=== PATIENT | male | born 1995 | race African-American/Black ===

== ENCOUNTER 2016-12-05 00:30 | Emergency (ER) | payer SELFPAY ==
[~2016-12-05] VITALS: Ht 182.9 cm; Wt 61.4 kg
[2016-12-05 00:37] VITALS: TEMP 97.4
[2016-12-05] MEDS ORDERED: NORCO 325 MG-51 TAB PO (02:29)
[2016-12-05 03:20] VITALS: BP 112/65; PULSE 71
== END 2016-12-05 03:20 | disposition home or self-care (01) ==
LOC: COL.ER 00:30
DX: M25.551 Pain in right hip (principal); X50.1XXA Overexertion from prolonged static or awkward postures, initial encounter; Y93.67 Activity, basketball; Y92.310 Basketball court as the place of occurrence of the external cause

== ENCOUNTER 2019-04-24 05:42 | Emergency (ER) | payer SELFPAY ==
[~2019-04-24] VITALS: Ht 182.9 cm; Wt 68.2 kg
[~2019-04-24 05:42] MED LIST: NORCO 325 MG-51 TAB PO
[2019-04-24 05:49] VITALS: BP 115/76; PULSE 73; TEMP 97.1
[2019-04-24 06:26] LABS: BASO % 0.7 % (0.0-2.0); EOS # 0.1 (0.0-0.7); EOS % 2.7 % (0-4.0); GRAN # 2.2 (1.4-6.5); GRAN % 48.5 % (42.2-75.2); HEMATOCRIT 39.9 % (42.0-52.0); LYMPH # 1.7 (1.2-3.4); LYMPH % 39.3 % (20.0-51.0); MEAN CELL VOLUME 86 fl (80.0-100.0); MEAN CORPUSCULAR HEMOGLOBIN 28 pg (27.0-31.0); MEAN CORPUSCULAR HGB CONC 33 g/dl (33.0-37.0); MEAN PLATELET VOLUME 10.6 fl (7.4-10.4); MONO # 0.4 (0.1-0.6); MONO % 8.8 % (1.7-9.3); PLATELET COUNT 190 K/mm3 (130-400); RED BLOOD COUNT 4.65 M/mm3 (4.20-5.60); REDCELL DISTRIBUTION WIDTH-CV 12.9 % (11.5-14.5)
[2019-04-24 06:36] LABS: ALBUMIN 4.1 gm/dL (3.5-5.0); BILIRUBIN,TOTAL 0.6 mg/dL (0.0-1.0); CALCIUM 8.6 mg/dL (8.4-10.2); CREATININE, serum 0.97 (0.66-1.25); POTASSIUM 4.1 mmol/L (3.4-5.0); TOTAL PROTEIN 7.5 gm/dL (6.4-8.2)
[2019-04-24 07:05] LABS: HIV 1/2 Antibodies Non-Reactive; HIV-1p24 Antigen Non-Reactive
== END 2019-04-24 07:34 | disposition home or self-care (01) ==
LOC: COL.ER 05:42
PROVIDERS: Emergency Medicine
DX: R20.2 Paresthesia of skin (principal); L29.9 Pruritus, unspecified

== ENCOUNTER 2020-07-26 18:36 | Emergency (ER) | payer SELFPAY ==
[~2020-07-26] VITALS: Ht 185.4 cm; Wt 68.2 kg
[2020-07-26 18:46] VITALS: BP 129/66; TEMP 98
[2020-07-26 20:52] VITALS: PULSE 66
== END 2020-07-26 20:44 | disposition home or self-care (01) ==
LOC: COL.ER 18:36
DX: H61.23 Impacted cerumen, bilateral (principal); F17.290 Nicotine dependence, other tobacco product, uncomplicated